=== PATIENT | female | born 1945 | race Caucasian/White ===

== ENCOUNTER → 2019-04-20 | Outpatient (CLI) | payer MEDICARE, OTHER ==
--- NOTE | 2019-04-20 16:01 | Diagnostic Imaging Report ---
Exam: Ultrasound of the medial left thigh History: Left thigh tenderness Comparison: None available Findings: Real-time evaluation of the medial left thigh and the right medial thigh for comparison reveals no evidence of a soft tissue mass abscess or significant cellulitis. Impression: Normal study. Signed by: Dr. Danial Abernathy DO on 04/20/2019 3:58 PM
== END ==
LOC: US 14:32
PROVIDERS: ATTEND Physical Medicine & Rehabilitation Pain Medicine
DX: R22.42 Localized swelling, mass and lump, left lower limb (principal); M79.652 Pain in left thigh
CPT/HCPCS: 76882

== ENCOUNTER → 2019-07-10 | Outpatient (CLI) | payer MEDICARE, OTHER ==
--- NOTE | 2019-07-10 11:36 | Diagnostic Imaging Report ---
EXAMINATION: HIP LEFT 2-3 VW (+/- PELVIS) INDICATION: Left hip pain COMPARISON: None FINDINGS: No acute fracture or dislocation. Severe degenerative changes of the left hip joint with [id number] contact, osteophyte formation, and subchondral sclerosis. IMPRESSION: No acute osseous injury. Severe left hip degenerative changes. Signed by: Omid Perez MD on 07/10/2019 11:32 AM
--- NOTE | 2019-07-10 11:36 | Diagnostic Imaging Report ---
EXAMINATION: KNEE LEFT THREE VIEWS INDICATION: Left knee pain COMPARISON: None FINDINGS: No acute fracture or dislocation. Alignment is anatomic. No substantial degenerative change. The soft tissues appear unremarkable. No joint effusion. IMPRESSION: No acute osseous injury. Signed by: Omid Perez MD on 07/10/2019 11:33 AM
== END ==
LOC: RAD 10:55
PROVIDERS: ATTEND Internal Medicine
DX: M25.552 Pain in left hip (principal); M25.562 Pain in left knee